=== PATIENT | male | born 1970 | race Caucasian/White ===

== ENCOUNTER 2025-02-01 09:02 | Emergency (ER) | payer OTHER ==
[~2025-02-01] VITALS: Ht 172.7 cm; Wt 114.0 kg
[2025-02-01 09:17] VITALS: O2SAT 98
[2025-02-01 10:14] LABS: BASOPHILS % 0.3 % (0.0-2.0); EOSINOPHILS % 2.2 % (0.0-5.0); HEMATOCRIT. 40.5 % (42.0-52.0); HEMOGLOBIN. 14.1 g/dL (14.0-18.0); LYMPHOCYTES % 30.6 % (20.0-50.0); MEAN PLATELET VOLUME 8.0 fl (7.4-10.4); MONOCYTES % 7.9 % (2.0-8.0); NEUTROPHILS % 59.0 % (40.0-76.0); PLATELET 160 x1000/uL (130-400); RED BLOOD CELL COUNT 4.72 mill/uL (4.7-6.1); RED CELL DISTRIBUTION WIDTH 13.1 % (11.6-14.6)
[2025-02-01 10:37] LABS: CREATININE 0.8 mg/dL (0.6-1.3); TROPONIN I HIGH SENSITIVITY < 4 ng/L (3.0-53); UREA NITROGEN BLOOD 10 mg/dL (9-23)
[2025-02-01 11:30] VITALS: BP 129/82; PULSE 61; RESP 18; TEMP 36.8; O2SAT 100
== END 2025-02-01 11:31 | disposition home or self-care (01) ==
LOC: ER 09:02
DX: R06.02 Shortness of breath (principal); F41.9 Anxiety disorder, unspecified; G51.0 Bell's palsy
CPT/HCPCS: 36415; 71045; 80048; 84484; 85025; 93005; 99285